=== PATIENT | male | born 1955 | race Caucasian/White ===

== ENCOUNTER → 2017-09-21 | Outpatient (CLI) | payer OTHER, BC ==
[~2017-09-21] MED LIST: DAYPRO600 MG PO; VOLTAREN GEL 1100 G1 TOP
[2017-09-21 08:44] LABS: CREATININE 0.9 mg/dL (0.7-1.3)
== END ==
LOC: CAT 08:02
PROVIDERS: Neuromusculoskeletal Medicine & OMM
DX: J98.4 Other disorders of lung (principal); M25.78 Osteophyte, vertebrae; K76.0 Fatty (change of) liver, not elsewhere classified; M79.89 Other specified soft tissue disorders

== ENCOUNTER → 2021-09-22 | Outpatient (CLI) | payer OTHER ==
[2021-09-23 00:07] LABS: TESTOSTERONE* 356 ng/dL (264-916)
== END ==
LOC: ULTRA 15:34
PROVIDERS: ATTEND Nurse Practitioner
DX: N44.2 Benign cyst of testis (principal); N43.2 Other hydrocele; N50.89 Other specified disorders of the male genital organs; R05.9 Cough, unspecified; R53.83 Other fatigue